=== PATIENT | female | born 1960 | race Caucasian/White ===

== ENCOUNTER 2023-01-05 08:53 | Outpatient (RCR) | payer MEDICARE ==
[2023-01-05] MEDS ORDERED: LIDOCAINE/PRILOCAINE 2.5-2.5% KIT ONE (14:28)
== END 2023-01-23 ==
LOC: WCC 08:53
PROVIDERS: ATTEND Internal Medicine Infectious Disease
DX: L89.322 Pressure ulcer of left buttock, stage 2 (principal); B36.9 Superficial mycosis, unspecified